=== PATIENT | male | born 1990 | race African-American/Black ===

== ENCOUNTER 2021-07-02 18:33 | Emergency (ER) | payer OTHER ==
[~2021-07-02] VITALS: Ht 167.6 cm; Wt 100.0 kg
[2021-07-02] MEDS: IBUPROFEN 400 MG TABLET PO ONE (20:13)
[2021-07-02 21:00] VITALS: BP 130/67
== END 2021-07-02 21:52 | disposition home or self-care (01) ==
LOC: EMS 18:39
DX: S62.231A Other displaced fracture of base of first metacarpal bone, right hand, initial encounter for closed fracture (principal); W22.01XA Walked into wall, initial encounter; Y93.89 Activity, other specified; Y92.89 Other specified places as the place of occurrence of the external cause; Y99.8 Other external cause status
CPT/HCPCS: 99283

== ENCOUNTER 2021-08-16 19:50 | Inpatient (IN) | payer MEDICAID, OTHER ==
[~2021-08-16] VITALS: Ht 165.1 cm; Wt 84.7 kg
[2021-08-16] MEDS ORDERED: LORazepam 1 MG TABLET PO ONE (21:00)
[2021-08-16 21:05] LABS: BASOPHILS % (AUTO) 0.2 % (0.0-2.0); EOSINOPHILS % (AUTO) 2.3 % (1.0-6.0); HEMOGLOBIN 13.7 g/dL (13.5-17.5); LYMPHOCYTES # (AUTO) 0.9 K/uL (1.0-4.8); LYMPHOCYTES % (AUTO) 6.6 % (22.0-44.0); MEAN CORPUSCULAR HEMOGLOBIN 29.3 pg (26.0-34.0); MEAN CORPUSCULAR HGB CONC 32.7 G/dL (31.0-37.0); MEAN CORPUSCULAR VOLUME 90 fL (80-100); MONOCYTES % (AUTO) 7.5 % (2.0-9.0); NEUTROPHILS % (AUTO) 83.4 % (40.0-70.0); PLATELET COUNT (AUTO) 224 K/uL (150-450); RED BLOOD CELL COUNT(AUTO) 4.68 MIL/uL (4.50-5.90); RED CELL DISTRIBUTION WIDTH 13.2 % (11.5-14.5)
[2021-08-16] MEDS: HALOPERIDOL 5 MG TABLET PO ONE ×2 (21:06→21:11)
[2021-08-16 21:12] LABS: ANION GAP 12 mmol/L (8-16); CALCIUM, TOTAL 9.2 mg/dL (8.8-10.5); CARBON DIOXIDE 23 mmol/L (22-29); CHLORIDE 107 mmol/L (98-107); GLOMERULAR FILTR. RATE CALC > 60 mL/min (>60); GLUCOSE,RANDOM 94 mg/dL (70-110); POTASSIUM 4.2 mmol/L (3.5-5.1); SODIUM SERUM 142 mmol/L (136-145); UREA NITROGEN, BLOOD 13 mg/dL (7-18)
[2021-08-16 21:17] LABS: ALANINE AMINOTRANSFERASE 40 U/L (12-78); ALBUMIN 3.5 g/dL (3.4-5.0); ALKALINE PHOSPHATASE 97 U/L (46-116); ASPARTATE AMINOTRANSFERASE 34 U/L (15-37); BILIRUBIN,TOTAL 0.2 mg/dL (0.1-1.0); TOTAL PROTEIN, SERUM 7.4 g/dL (6.4-8.2)
[2021-08-16] MEDS ORDERED: ZOLPIDEM TARTRATE 10 MG TABLET PO PRN (22:15)
[2021-08-16] MEDS ORDERED: LORazepam 2 MG TABLET PO PRN (22:15)
[2021-08-17 01:03] LABS: COVID AG,FIA SOURCE NASAL SWAB
[2021-08-17] MEDS ORDERED: 0.9% SODIUM CHLORIDE 10 ML SYRINGE IVP PRN (06:00)
[2021-08-17] MEDS ORDERED: ACETAMINOPHEN 325 MG TABLET PO PRN ×2 (06:00→06:45)
[2021-08-17] MEDS ORDERED: DOCUSATE SODIUM 100 MG CAPSULE PO PRN (06:45)
[2021-08-17] MEDS ORDERED: BENZOCAINE/MENTHOL LOZENGE PO PRN (06:45)
[2021-08-17] MEDS ORDERED: PETROLATUM,WHITE 28 GM JELLY TP PRN (06:45)
[2021-08-17] MEDS ORDERED: ONDANSETRON HCL 4 MG TABLET PO PRN (06:45)
[2021-08-17] MEDS ORDERED: LOPERAMIDE HCL 2 MG CAPSULE PO PRN (06:45)
[2021-08-17] MEDS ORDERED: CloNIDine HCL 0.1 MG TABLET PO PRN (06:45)
[2021-08-17] MEDS ORDERED: OMEPRAZOLE 20 MG CAPSULE PO PRN (06:45)
[2021-08-17] MEDS ORDERED: ALBUTEROL SULFATE HFA 90 MCG/PUFF 8 GM INHALER IH PRN (06:45)
[2021-08-17] MEDS ORDERED: MAG HYDROX/AL HYDROX/SIMETH ES 30 ML SUSPENSION UDCUP PO PRN (06:45)
[2021-08-17] MEDS ORDERED: MAGNESIUM HYDROXIDE SUSPENSION 30 ML UDCUP PO PRN (06:45)
[2021-08-17] MEDS ORDERED: BACITRACIN 28 GM OINTMENT TP PRN (06:45)
[2021-08-17 09:12] VITALS: BP 133/77
[2021-08-17 10:00] VITALS: BP 133/77
[2021-08-17] MEDS: IBUPROFEN 600 MG TABLET PO PRN (10:07)
[2021-08-17 11:00] VITALS: BP 125/84
[2021-08-17] MEDS: OLANZapine 5 MG RAPDIS TABLET PO PRN (16:52)
[2021-08-17] MEDS: RisperiDONE 2 MG TABLET PO SCH (16:52)
[2021-08-18] MEDS: RisperiDONE 2 MG TABLET PO SCH ×2 (09:48→16:12)
[2021-08-18] MEDS: IBUPROFEN 600 MG TABLET PO PRN ×2 (09:54→19:29)
[2021-08-18 14:24] LABS: APPEARANCE,URINE TURBID (CLEAR); GLUCOSE, URINE (UA) NEGATIVE (NEGATIVE); KETONES,URINE TRACE mg/dL (NEGATIVE); LEUKOCYTE ESTERASE ,URINE NEGATIVE (NEGATIVE); NITRATE,URINE NEGATIVE (NEGATIVE); OCCULT BLOOD,URINE NEGATIVE (NEGATIVE); PROTEIN,URINE NEGATIVE (NEGATIVE); UROBILINOGEN,URINE 0.2 mg/dL (<=1.0)
[2021-08-18 14:29] LABS: BILIRUBIN,URINE PRELIM. POSITIVE (NEGATIVE)
[2021-08-18 14:31] LABS: AMPHET/METH SCREEN,URINE POSITIVE (NEGATIVE); BARBITURATE SCREEN, URINE NEGATIVE (NEGATIVE); BENZODIAZEPINES SCREEN,URINE NEGATIVE (NEGATIVE); CANNABINOID SCREEN,URINE POSITIVE (NEGATIVE); COCAINE SCREEN,URINE NEGATIVE (NEGATIVE); METHADONE SCREEN, URINE NEGATIVE (NEGATIVE); OPIATE SCREEN,URINE NEGATIVE (NEGATIVE); PHENCYCLIDINE SCREEN,URINE NEGATIVE (NEGATIVE)
[2021-08-19] MEDS: RisperiDONE 2 MG TABLET PO SCH ×2 (09:50→16:05)
[2021-08-19] MEDS: IBUPROFEN 600 MG TABLET PO PRN ×2 (09:50→16:33)
[2021-08-19] MEDS: OLANZapine 5 MG RAPDIS TABLET PO PRN (16:05)
[2021-08-19 17:33] VITALS: BP 127/85
[2021-08-20] MEDS: RisperiDONE 2 MG TABLET PO SCH ×3 (08:33→16:11)
[2021-08-20] MEDS: IBUPROFEN 600 MG TABLET PO PRN (11:15)
[2021-08-20 16:00] VITALS: BP 98/60
[2021-08-21 08:02] VITALS: BP 162/38
[2021-08-21] MEDS: RisperiDONE 2 MG TABLET PO SCH ×2 (10:09→16:00)
[2021-08-21] MEDS: IBUPROFEN 600 MG TABLET PO PRN ×2 (10:12→16:06)
[2021-08-21 16:03] VITALS: BP 120/64
[2021-08-22] MEDS: RisperiDONE 2 MG TABLET PO SCH ×2 (08:11→16:24)
[2021-08-22 16:00] VITALS: BP 119/74
[2021-08-22] MEDS: IBUPROFEN 600 MG TABLET PO PRN (16:02)
[2021-08-23 10:00] VITALS: BP 121/77
[2021-08-23] MEDS: RisperiDONE 2 MG TABLET PO SCH (10:00)
[2021-08-23] MEDS: IBUPROFEN 600 MG TABLET PO PRN (10:00)
[2021-08-23] MEDS ORDERED: RISP2TAB45 PO (12:59)
== END 2021-08-23 13:45 | disposition home or self-care (01) | DRG 753 ==
LOC: EMS 19:53 → 3EC 23:57
PROVIDERS: ADMIT Psychiatry & Neurology Psychiatry; ATTEND Psychiatry & Neurology Psychiatry
DX: F31.9 Bipolar disorder, unspecified (principal); N17.9 Acute kidney failure, unspecified; F25.9 Schizoaffective disorder, unspecified; R45.851 Suicidal ideations; F15.10 Other stimulant abuse, uncomplicated; Z20.822 Contact with and (suspected) exposure to COVID-19; F41.9 Anxiety disorder, unspecified; G47.00 Insomnia, unspecified; I10 Essential (primary) hypertension; K59.00 Constipation, unspecified; E66.9 Obesity, unspecified; Z79.899 Other long term (current) drug therapy; Z87.891 Personal history of nicotine dependence; Z68.31 Body mass index [BMI] 31.0-31.9, adult
CPT/HCPCS: 70140; 80053; 80307; 85025; 99285; G0480

== ENCOUNTER 2021-10-23 15:20 | Emergency (ER) | payer MEDICAID, OTHER ==
[~2021-10-23] VITALS: Ht 165.1 cm; Wt 85.0 kg
[~2021-10-23 15:20] MED LIST: RISP2TAB45 PO
[2021-10-23 15:21] VITALS: BP 142/73
== END 2021-10-23 17:00 | disposition left against medical advice (07) ==
LOC: EMS 15:20
DX: R45.851 Suicidal ideations (principal); Z53.21 Procedure and treatment not carried out due to patient leaving prior to being seen by health care provider

== ENCOUNTER 2021-12-04 20:29 | Emergency (ER) | payer OTHER ==
[~2021-12-04] VITALS: Ht 165.1 cm; Wt 80.5 kg
[2021-12-04 22:55] LABS: ANION GAP 8 mmol/L (8-16); CALCIUM, TOTAL 8.9 mg/dL (8.8-10.5); CARBON DIOXIDE 26 mmol/L (22-29); CHLORIDE 106 mmol/L (98-107); CREATININE 1.32 mg/dL (0.60-1.30); GLUCOSE,RANDOM 122 mg/dL (70-110); POTASSIUM 3.6 mmol/L (3.5-5.1); SODIUM SERUM 140 mmol/L (136-145); UREA NITROGEN, BLOOD 18 mg/dL (7-18)
[2021-12-04 23:02] LABS: ALANINE AMINOTRANSFERASE 30 U/L (12-78); ALBUMIN 3.4 g/dL (3.4-5.0); ALKALINE PHOSPHATASE 133 U/L (46-116); ASPARTATE AMINOTRANSFERASE 27 U/L (15-37); BASOPHILS % (AUTO) 0.3 % (0.0-2.0); BILIRUBIN,TOTAL 0.2 mg/dL (0.1-1.0); EOSINOPHILS % (AUTO) 2.9 % (1.0-6.0); HEMATOCRIT 44.1 % (41-53); HEMOGLOBIN 14.5 g/dL (13.5-17.5); LYMPHOCYTES # (AUTO) 1.7 K/uL (1.0-4.8); LYMPHOCYTES % (AUTO) 22.7 % (22.0-44.0); MEAN CORPUSCULAR HEMOGLOBIN 29.1 pg (26.0-34.0); MEAN CORPUSCULAR VOLUME 88 fL (80-100); MONOCYTES # (AUTO) 0.8 K/uL (0.1-1.0); NEUTROPHILS # (AUTO) 4.8 K/uL (1.8-7.7); NEUTROPHILS % (AUTO) 63.1 % (40.0-70.0); PLATELET COUNT (AUTO) 245 K/uL (150-450); RED CELL DISTRIBUTION WIDTH 13.5 % (11.5-14.5); TOTAL PROTEIN, SERUM 7.4 g/dL (6.4-8.2)
[2021-12-04 23:23] LABS: GLOMERULAR FILTR. RATE CALC > 60 mL/min (>60)
[2021-12-05 01:55] LABS: COVID AG,FIA SOURCE NASOPHARYNGEAL
[2021-12-05 07:26] VITALS: BP 124/93
[2021-12-05] MEDS ORDERED: ZOLPIDEM TARTRATE 10 MG TABLET PO PRN (09:30)
[2021-12-05] MEDS ORDERED: HALOPERIDOL 5 MG TABLET PO PRN (09:30)
[2021-12-05] MEDS ORDERED: LORazepam 2 MG TABLET PO PRN (09:30)
== END 2021-12-05 10:31 | disposition home or self-care (01) ==
LOC: EMS 20:32
DX: R45.851 Suicidal ideations (principal); F31.9 Bipolar disorder, unspecified; F17.210 Nicotine dependence, cigarettes, uncomplicated; F20.9 Schizophrenia, unspecified; F12.90 Cannabis use, unspecified, uncomplicated; F15.90 Other stimulant use, unspecified, uncomplicated; Z20.822 Contact with and (suspected) exposure to COVID-19
CPT/HCPCS: 36415; 80053; 85025; 87426; 99284; G0480; 99285

== ENCOUNTER 2022-01-21 22:18 | Inpatient (IN) | payer MEDICAID, OTHER ==
[~2022-01-21] VITALS: Ht 165.1 cm; Wt 80.0 kg
[2022-01-21 23:57] LABS: BASOPHILS % (AUTO) 0.2 % (0.0-2.0); EOSINOPHILS % (AUTO) 5.7 % (1.0-6.0); HEMATOCRIT 39.2 % (41-53); HEMOGLOBIN 13.2 g/dL (13.5-17.5); LYMPHOCYTES % (AUTO) 35.4 % (22.0-44.0); MEAN CORPUSCULAR HEMOGLOBIN 29.6 pg (26.0-34.0); MEAN CORPUSCULAR HGB CONC 33.7 G/dL (31.0-37.0); MEAN CORPUSCULAR VOLUME 88 fL (80-100); MONOCYTES # (AUTO) 0.7 K/uL (0.1-1.0); MONOCYTES % (AUTO) 13.5 % (2.0-9.0); NEUTROPHILS # (AUTO) 2.5 K/uL (1.8-7.7); NEUTROPHILS % (AUTO) 45.2 % (40.0-70.0); PLATELET COUNT (AUTO) 217 K/uL (150-450); RED BLOOD CELL COUNT(AUTO) 4.46 MIL/uL (4.50-5.90); RED CELL DISTRIBUTION WIDTH 13.4 % (11.5-14.5)
[2022-01-22] MEDS ORDERED: RisperiDONE 1 MG TABLET PO ONE
[2022-01-22 00:06] LABS: ANION GAP 5 mmol/L (8-16); CALCIUM, TOTAL 8.5 mg/dL (8.8-10.5); CARBON DIOXIDE 30 mmol/L (22-29); CHLORIDE 103 mmol/L (98-107); CREATININE 1.03 mg/dL (0.60-1.30); GLOMERULAR FILTR. RATE CALC > 60 mL/min (>60); GLUCOSE,RANDOM 119 mg/dL (70-110); POTASSIUM 3.3 mmol/L (3.5-5.1); SODIUM SERUM 138 mmol/L (136-145); UREA NITROGEN, BLOOD 9 mg/dL (7-18)
[2022-01-22 00:11] LABS: ALANINE AMINOTRANSFERASE 28 U/L (12-78); ALBUMIN 3.1 g/dL (3.4-5.0); ALKALINE PHOSPHATASE 91 U/L (46-116); ASPARTATE AMINOTRANSFERASE 20 U/L (15-37); BILIRUBIN,TOTAL 0.2 mg/dL (0.1-1.0); TOTAL PROTEIN, SERUM 6.5 g/dL (6.4-8.2)
[2022-01-22 00:42] LABS: COVID AG,FIA SOURCE NASOPHARYNGEAL
[2022-01-22] MEDS ORDERED: ZOLPIDEM TARTRATE 10 MG TABLET PO PRN (01:15)
[2022-01-22] MEDS ORDERED: HALOPERIDOL 5 MG TABLET PO PRN (01:15)
[2022-01-22] MEDS ORDERED: LORazepam 2 MG TABLET PO PRN (01:15)
[2022-01-22 02:00] VITALS: BP 129/70
[2022-01-22] MEDS ORDERED: INFLUENZA VIRUS VACCINE QVS 2021-22 (6MO+)/PF 60 MCG/0.5 ML SYRINGE IM. ONE (05:15)
[2022-01-22] MEDS ORDERED: POTASSIUM CHLORIDE 20 MEQ ER TABLET PO ONE (06:30)
[2022-01-22 08:00] VITALS: BP 103/59
[2022-01-22 10:26] LABS: APPEARANCE,URINE CLOUDY (CLEAR); BILIRUBIN,URINE NEGATIVE (NEGATIVE); GLUCOSE, URINE (UA) NEGATIVE (NEGATIVE); KETONES,URINE NEGATIVE (NEGATIVE); LEUKOCYTE ESTERASE ,URINE NEGATIVE (NEGATIVE); NITRATE,URINE NEGATIVE (NEGATIVE); OCCULT BLOOD,URINE NEGATIVE (NEGATIVE); PROTEIN,URINE NEGATIVE (NEGATIVE); UROBILINOGEN,URINE 0.2 mg/dL (<=1.0)
[2022-01-22 10:32] LABS: AMPHET/METH SCREEN,URINE POSITIVE (NEGATIVE); BARBITURATE SCREEN, URINE NEGATIVE (NEGATIVE); BENZODIAZEPINES SCREEN,URINE NEGATIVE (NEGATIVE); CANNABINOID SCREEN,URINE POSITIVE (NEGATIVE); COCAINE SCREEN,URINE NEGATIVE (NEGATIVE); METHADONE SCREEN, URINE NEGATIVE (NEGATIVE); OPIATE SCREEN,URINE NEGATIVE (NEGATIVE); PHENCYCLIDINE SCREEN,URINE NEGATIVE (NEGATIVE)
[2022-01-22 10:59] LABS: BACTERIA,URINE None Seen /HPF (None Seen); CALCIUM OXALATE CRYSTALS,UR Few /LPF (None Seen); RBC,URINE None Seen /HPF (0-2); SQUAMOUS EPITHELIAL CELL,UR Few /LPF (None Seen); URIC ACID CRYSTALS,URINE Few /LPF (None Seen); WBC,URINE None Seen /HPF (0-5)
[2022-01-22] MEDS: RisperiDONE 2 MG TABLET PO SCH ×2 (11:33→20:55)
[2022-01-22] MEDS ORDERED: PETROLATUM,WHITE 28 GM JELLY TP PRN (18:15)
[2022-01-22] MEDS ORDERED: MAG HYDROX/AL HYDROX/SIMETH ES 30 ML SUSPENSION UDCUP PO PRN (18:15)
[2022-01-22] MEDS ORDERED: ALBUTEROL SULFATE HFA 90 MCG/PUFF 8 GM INHALER IH PRN (18:15)
[2022-01-22] MEDS ORDERED: MAGNESIUM HYDROXIDE SUSPENSION 30 ML UDCUP PO PRN (18:15)
[2022-01-22] MEDS ORDERED: ACETAMINOPHEN 325 MG TABLET PO PRN (18:15)
[2022-01-22] MEDS ORDERED: ONDANSETRON HCL 4 MG TABLET PO PRN (18:15)
[2022-01-22] MEDS ORDERED: LOPERAMIDE HCL 2 MG CAPSULE PO PRN (18:15)
[2022-01-22] MEDS ORDERED: CloNIDine HCL 0.1 MG TABLET PO PRN (18:15)
[2022-01-22] MEDS ORDERED: NICOTINE 14 MG/24 HOUR PATCH TD PRN (18:15)
[2022-01-22] MEDS ORDERED: GuaiFENesin/D-METHORPHAN [SUGAR-FREE] 200-20MG/10 ML SYRUP UDCUP PO PRN (18:15)
[2022-01-22] MEDS ORDERED: DOCUSATE SODIUM 100 MG CAPSULE PO PRN (18:15)
[2022-01-22] MEDS ORDERED: IBUPROFEN 400 MG TABLET PO PRN (18:15)
[2022-01-23] MEDS: RisperiDONE 2 MG TABLET PO SCH ×2 (08:07→20:16)
[2022-01-23 09:28] VITALS: BP 141/91
[2022-01-23] MEDS ORDERED: CloNIDine HCL 0.1 MG TABLET PO PRN (15:45)
[2022-01-23] MEDS ORDERED: IBUPROFEN 400 MG TABLET PO PRN (15:45)
[2022-01-23] MEDS ORDERED: GuaiFENesin/D-METHORPHAN [SUGAR-FREE] 200-20MG/10 ML SYRUP UDCUP PO PRN (15:45)
[2022-01-23] MEDS ORDERED: ALBUTEROL SULFATE HFA 90 MCG/PUFF 8 GM INHALER IH PRN (15:45)
[2022-01-23] MEDS ORDERED: MAGNESIUM HYDROXIDE SUSPENSION 30 ML UDCUP PO PRN (15:45)
[2022-01-23] MEDS ORDERED: NICOTINE 14 MG/24 HOUR PATCH TD PRN (15:45)
[2022-01-23] MEDS ORDERED: DOCUSATE SODIUM 100 MG CAPSULE PO PRN (15:45)
[2022-01-23] MEDS ORDERED: LOPERAMIDE HCL 2 MG CAPSULE PO PRN (15:45)
[2022-01-23] MEDS ORDERED: PETROLATUM,WHITE 28 GM JELLY TP PRN (15:45)
[2022-01-23] MEDS ORDERED: MAG HYDROX/AL HYDROX/SIMETH ES 30 ML SUSPENSION UDCUP PO PRN (15:45)
[2022-01-23] MEDS ORDERED: ONDANSETRON HCL 4 MG TABLET PO PRN (15:45)
[2022-01-23] MEDS ORDERED: ACETAMINOPHEN 325 MG TABLET PO PRN (15:45)
[2022-01-24 08:30] VITALS: BP 112/77
[2022-01-24] MEDS: RisperiDONE 2 MG TABLET PO SCH ×2 (13:22→20:12)
[2022-01-24] MEDS: MULTIVITAMINS, THERAPEUTIC TABLET PO SCH (13:22)
[2022-01-24 16:00] VITALS: BP 119/75
[2022-01-25] MEDS: RisperiDONE 2 MG TABLET PO SCH ×2 (08:07→21:46)
[2022-01-25] MEDS: MULTIVITAMINS, THERAPEUTIC TABLET PO SCH (08:07)
[2022-01-25 10:31] VITALS: BP 126/76
[2022-01-25 19:00] VITALS: BP 130/79
[2022-01-25] MEDS: BACITRACIN 28 GM OINTMENT TP SCH (21:53)
[2022-01-26 08:00] VITALS: BP 115/79
[2022-01-26] MEDS: MULTIVITAMINS, THERAPEUTIC TABLET PO SCH (08:31)
[2022-01-26] MEDS: RisperiDONE 2 MG TABLET PO SCH ×3 (08:31→21:31)
[2022-01-26] MEDS: BACITRACIN 28 GM OINTMENT TP SCH ×2 (08:31→16:12)
[2022-01-26] MEDS ORDERED: BACITRACIN 28 GM OINTMENT TP SCH (09:00)
[2022-01-27 09:24] VITALS: BP 133/70
[2022-01-27] MEDS: MULTIVITAMINS, THERAPEUTIC TABLET PO SCH (10:23)
[2022-01-27] MEDS: RisperiDONE 2 MG TABLET PO SCH (10:23)
[2022-01-27] MEDS: BACITRACIN 28 GM OINTMENT TP SCH (10:23)
[2022-01-27] MEDS ORDERED: RISP2TAB45 PO (12:59)
[2022-01-27 16:02] VITALS: BP 111/70
== END 2022-01-27 16:16 | disposition home or self-care (01) | DRG 750 ==
LOC: EMS 22:20 → 3EI 01-22 02:31
PROVIDERS: ADMIT Psychiatry & Neurology Psychiatry; ATTEND Psychiatry & Neurology Psychiatry
DX: F25.1 Schizoaffective disorder, depressive type (principal); R45.850 Homicidal ideations; R45.851 Suicidal ideations; E87.6 Hypokalemia; F12.10 Cannabis abuse, uncomplicated; Z20.822 Contact with and (suspected) exposure to COVID-19; F15.10 Other stimulant abuse, uncomplicated; Z79.899 Other long term (current) drug therapy; Z87.891 Personal history of nicotine dependence; Z91.14 Patient's other noncompliance with medication regimen
CPT/HCPCS: 80053; 80307; 81001; 85025; 87081; 99285; G0480

== ENCOUNTER 2025-03-13 06:06 | Emergency (ER) | payer OTHER ==
[~2025-03-13] VITALS: Ht 165.1 cm; Wt 79.1 kg
[~2025-03-13 06:06] MED LIST changes: +CEPH-558 PO; -RISP2TAB45 PO; +SULF-261 PO
[2025-03-13 06:13] VITALS: BP 134/92; PULSE 87; RESP 16; TEMP 97.8; O2SAT 99
[2025-03-13] MEDS: SULFAMETHOX/TRIMETH DS 800-160 MG/TABLET PO ONE (06:59)
[2025-03-13] MEDS: CEPHALEXIN MONOHYDRATE 500 MG CAPSULE PO ONE (06:59)
[2025-03-13] MEDS ORDERED: CEPH-558 PO (07:06)
[2025-03-13] MEDS ORDERED: SULF-261 PO (07:06)
[2025-03-13] MEDS: BACITRACIN 28 GM OINTMENT TP ONE (07:31)
== END 2025-03-13 07:51 | disposition home or self-care (01) ==
LOC: EMS 06:09
DX: S71.002A Unspecified open wound, left hip, initial encounter (principal); F12.90 Cannabis use, unspecified, uncomplicated; F17.210 Nicotine dependence, cigarettes, uncomplicated; F20.9 Schizophrenia, unspecified; W57.XXXA Bitten or stung by nonvenomous insect and other nonvenomous arthropods, initial encounter; Y93.89 Activity, other specified; Y92.89 Other specified places as the place of occurrence of the external cause; Y99.8 Other external cause status
CPT/HCPCS: 99284; Z7502; Z7610

== ENCOUNTER 2025-04-19 07:47 | Emergency (ER) | payer OTHER ==
[~2025-04-19] VITALS: Ht 165.1 cm; Wt 77.3 kg
[2025-04-19] MEDS ORDERED: OLAN2.5T78 PO (07:51)
[2025-04-19 07:52] VITALS: BP 130/86; PULSE 114; RESP 20; TEMP 98.2; O2SAT 98
[2025-04-19] MEDS: DiphenhydrAMINE HCL 25 MG CAPSULE PO ONE (08:30)
[2025-04-19] MEDS: DiphenhydrAMINE/ZINC ACET 30 GM CREAM TP ONE (08:30)
[2025-04-19] MEDS: PredniSONE 20 MG TABLET PO ONE (08:30)
== END 2025-04-19 09:00 | disposition home or self-care (01) ==
LOC: EMS 07:50
DX: R21 Rash and other nonspecific skin eruption (principal); F12.90 Cannabis use, unspecified, uncomplicated; F20.9 Schizophrenia, unspecified; F15.10 Other stimulant abuse, uncomplicated; F17.210 Nicotine dependence, cigarettes, uncomplicated; F10.90 Alcohol use, unspecified, uncomplicated; Y90.9 Presence of alcohol in blood, level not specified
CPT/HCPCS: 99281

== ENCOUNTER 2025-07-01 16:26 | Emergency (ER) | payer OTHER ==
[~2025-07-01] VITALS: Ht 165.1 cm; Wt 84.0 kg
[~2025-07-01 16:26] MED LIST changes: -CEPH-558 PO; +OLAN2.5T78 PO; -SULF-261 PO
[2025-07-01 16:58] VITALS: TEMP 98.2
[2025-07-01] MEDS ORDERED: SULF-261 PO (22:53)
[2025-07-01] MEDS ORDERED: CEPH-558 PO (22:53)
[2025-07-01] MEDS: CefTRIAXone SODIUM 1 GM/VIAL IM ONE (23:46)
[2025-07-01] MEDS: SULFAMETHOX/TRIMETH DS 800-160 MG/TABLET PO ONE (23:46)
[2025-07-01] MEDS: LIDOCAINE/PF 1% 2 ML VIAL IM ONE (23:46)
[2025-07-02 01:16] VITALS: BP 130/69; PULSE 77; RESP 16; O2SAT 99
== END 2025-07-02 01:19 | disposition home or self-care (01) ==
LOC: EMS 16:26
DX: L03.311 Cellulitis of abdominal wall (principal); L02.211 Cutaneous abscess of abdominal wall; F31.9 Bipolar disorder, unspecified; F20.9 Schizophrenia, unspecified; F12.90 Cannabis use, unspecified, uncomplicated; F17.210 Nicotine dependence, cigarettes, uncomplicated; F15.90 Other stimulant use, unspecified, uncomplicated; F11.90 Opioid use, unspecified, uncomplicated; Z79.899 Other long term (current) drug therapy
CPT/HCPCS: 99283; 87205; 96372; 87070; J0696; J3490